=== PATIENT | male | born 1960 | race Caucasian/White ===

== ENCOUNTER 2016-08-14 10:21 | Observation (INO) | payer MEDICARE ==
[2016-08-14] MEDS ORDERED: ASPIRIN 81 MG TABLET, CHEWABLE PO ONE (10:28)
[2016-08-14] MEDS ORDERED: NITROGLYCERIN 2% OINTMENT 1 GM PACKET TP ONE (10:35)
[2016-08-14 10:43] LABS: ABSOLUTE BASOPHILS # (AUTO) 0.1 10^3/uL (0.0-0.2); ABSOLUTE EOSINOPHILS # (AUTO) 0.2 10^3/uL (0.0-0.6); ABSOLUTE LYMPHOCYTES (AUTO) 1.2 10^3/uL (0.5-4.7); ABSOLUTE MONOCYTES (AUTO) 1.3 10^3/uL (0.1-1.4); ABSOLUTE NEUT (AUTO) 10.8 10^3/uL (1.7-8.2); BASOPHILS % (AUTO) 0.7 % (0-2); EOSINOPHILS % (AUTO) 1.5 % (0-6); HEMATOCRIT 34.1 % (37.9-51.0); HEMOGLOBIN 11.2 g/dL (13.5-17.0); HGB HCT DIFFERENCE -0.5; LYMPHOCYTES % (AUTO) 8.7 % (13-45); MEAN CORPUSCULAR HEMOGLOBIN 30.2 pg (27.0-33.4); MEAN CORPUSCULAR HGB CONC 32.8 g/dL (32.0-36.0); MEAN CORPUSCULAR VOLUME 92 fl (80-97); MONOCYTES % (AUTO) 9.4 % (3-13); RED BLOOD COUNT 3.71 10^6/uL (4.35-5.55); RED CELL DISTRIBUTION WIDTH 13.7 % (11.5-14.0); SEGMENTED NEUTROPHILS % (AUTO) 79.7 % (42-78); WHITE BLOOD COUNT 13.6 10^3/uL (4.0-10.5)
[2016-08-14 10:57] LABS: ALANINE AMINOTRANSFERASE 32 U/L (21-72); ALBUMIN 3.4 g/dL (3.5-5.0); ALKALINE PHOSPHATASE 90 U/L (38-126); ANION GAP 13 (5-19); ASPARTATE AMINO TRANSFERASE 21 U/L (17-59); BILIRUBIN,DIRECT 0.5 mg/dL (0.0-0.4); BILIRUBIN,TOTAL 0.5 mg/dL (0.2-1.3); BLOOD UREA NITROGEN 63 mg/dL (7-20); CALCIUM 8.9 mg/dL (8.4-10.2); CARBON DIOXIDE 27 mmol/L (22-30); CHLORIDE 95 mmol/L (98-107); CREATINE KINASE 148 U/L (55-170); CREATININE RESULT 8.58 mg/dL (0.52-1.25); GLUCOSE 151 mg/dL (75-110); LIPASE 245.8 U/L (23-300); MAGNESIUM 2.4 mg/dL (1.6-2.3); POTASSIUM 5.4 mmol/L (3.6-5.0); TOTAL PROTEIN 6.5 g/dL (6.3-8.2)
[2016-08-14 11:01] LABS: PROTHROMBIN TIME 13.5 SEC (11.4-15.4)
[2016-08-14 11:02] LABS: PARTIAL THROMBOPLASTIN TIME 31.3 SEC (23.5-35.8)
--- NOTE | 2016-08-14 11:02 | RADIOLOGY REPORT (SQ) ---
EXAM DESCRIPTION: CHEST SINGLE VIEW COMPLETED DATE/TIME: 08/14/2016 10:51 am REASON FOR STUDY: cp COMPARISON: None. EXAM PARAMETERS: NUMBER OF VIEWS: One view. TECHNIQUE: Single frontal radiographic view of the chest acquired. RADIATION DOSE: NA LIMITATIONS: Poor inspiration. FINDINGS: LUNGS AND PLEURA: No opacities, masses or pneumothorax. No pleural effusion. MEDIASTINUM AND HILAR STRUCTURES: No masses. Contour normal. HEART AND VASCULAR STRUCTURES: Mild cardiomegaly. No evidence failure. BONES: No acute findings. HARDWARE: Status post midline sternotomy. OTHER: No other significant finding. IMPRESSION: Mild cardiomegaly without evidence of acute cardiopulmonary disease. TECHNICAL DOCUMENTATION: JOB ID: [id number]
[2016-08-14 11:09] LABS: CREATINE KINASE MB 6.35 ng/mL (<4.55)
[2016-08-14 11:14] LABS: TROPONIN I 0.064 ng/mL
--- NOTE | 2016-08-14 11:30 | RADIOLOGY REPORT (SQ) ---
EXAM DESCRIPTION: CT HEAD WITHOUT COMPLETED DATE/TIME: 08/14/2016 11:03 am REASON FOR STUDY: ams COMPARISON: None. TECHNIQUE: Axial images acquired through the brain without intravenous contrast. Images reviewed wi th bone, brain and subdural windows. Images stored on PACS. All CT scanners at this facility use dose modulation, iterative reconstruction, and/or weight based d osing when appropriate to reduce radiation dose to as low as reasonably achievable (ALARA). [facility]: Dose Right [facility]: CareDose [facility]: Dose Right [facility]: Teradose 4D [facility]: better. RADIATION DOSE: Up-to-date CT equipment and radiation dose reduction techniques were employed. CTDIv ol: 64.6 mGy. DLP: 1163 mGy-cm. mGy. LIMITATIONS: None. FINDINGS: VENTRICLES: Prominent. CEREBRUM: No masses. No hemorrhage. No midline shift. Areas of low density in the white matter mos t likely due to chronic micro-vascular ischemic change. No evidence for acute infarction. CEREBELLUM: No masses. No hemorrhage. No alteration of density. No evidence for acute infarction. EXTRAAXIAL SPACES: Mild age-related involutional change. No fluid collections. No masses. ORBITS AND GLOBE: No intra- or extraconal masses. Normal contour of globe without masses. CALVARIUM: No fracture. PARANASAL SINUSES: No fluid or mucosal thickening. SOFT TISSUES: No mass or hematoma. OTHER: No other significant finding. IMPRESSION: MILD CHRONIC CHANGES OF ATROPHY AND MICROVASCULAR ISCHEMIA. NO ACUTE PROCESS. TECHNICAL DOCUMENTATION: JOB ID: [id number] Quality ID # [id number]: Final reports with documentation of one or more dose reduction techniques (e.g., Au tomated exposure control, adjustment of the mA and/or kV according to patient size, use of iterative reconstruction technique) 2010 [employer]- All Rights Reserved
--- NOTE | 2016-08-14 11:51 | ER Document Report ---
ED General - General Chief Complaint: Chest Pressure Stated Complaint: CHEST PAIN Time Seen by Provider: 08/14/16 11:00 TRAVEL OUTSIDE OF THE [place] IN LAST 30 DAYS: No - HPI Patient complains to provider of: Chest pain Notes: Coming in for evaluation chest pain chest pressure. Patient states woke up morning with symptoms also states he was mildly confused. Patient is a end- stage renal disease patient performing home hemodialysis. Patient states he normally performs his hemodialysis Tuesdays. Patient denies any recent travel denies any recent trauma. Patient states he had a full session of dialysis today prior to arrival. Patient states he does have a history of stent placement bypass surgery. - Related Data Allergies/Adverse Reactions: lisinopril Allergy (Verified 08/14/16 10:39) Home Medications: Current Home Medications Atorvastatin Calcium [Lipitor 20 mg Tablet] 20 mg PO QHS 08/14/16 [History] Cilostazol [Cilostazol] 50 mg PO BID 08/14/16 [History] Metoprolol Tartrate [Metoprolol Tartrate] 50 mg PO Q12 08/14/16 [History] Past Medical History - Social History Smoking Status: Former Smoker Frequency of alcohol use: None Drug Abuse: None Family History: Reviewed & Not Pertinent - Past Medical History Cardiac Medical History: Reports: Hx Hypercholesterolemia, Hx Hypertension Endocrine Medical History: Reports: Hx Diabetes Mellitus Type 1 Past Surgical History: Reports: Hx Cardiac Catheterization, Hx Cardiac Surgery - bypass Review of Systems - Review of Systems Constitutional: No symptoms reported EENT: No symptoms reported Cardiovascular: Chest pain Respiratory: No symptoms reported Gastrointestinal: No symptoms reported Genitourinary: No symptoms reported Male Genitourinary: No symptoms reported Musculoskeletal: No symptoms reported Skin: No symptoms reported Hematologic/Lymphatic: No symptoms reported Neurological/Psychological: No symptoms reported -: Yes All other systems reviewed and negative Physical Exam - Vital signs Vitals: Resp 20 08/14/16 10:25 Interpretation: Normal - General General appearance: Appears well, Alert - HEENT Head: Normocephalic, Atraumatic Eyes: Normal Pupils: PERRL - Respiratory Respiratory status: No respiratory distress Chest status: Nontender Breath sounds: Normal Chest palpation: Normal - Cardiovascular Rhythm: Regular Heart sounds: Normal auscultation Murmur: No - Abdominal Inspection: Normal Distension: No distension Bowel sounds: Normal Tenderness: Nontender Organomegaly: No organomegaly - Back Back: Normal, Nontender - Extremities General upper extremity: Normal inspection, Nontender, Normal color, Normal ROM , Normal temperature, Other - AV fistula in the left upper extremity with palpable thrill General lower extremity: Normal inspection, Nontender, Normal color, Normal ROM , Normal temperature, Normal weight bearing. No: Kisha's sign - Neurological Neuro grossly intact: Yes Cognition: Normal Orientation: AAOx4 [place] Coma Scale Eye Opening: Spontaneous Rose Coma Scale Verbal: Oriented Rose Coma Scale Motor: Obeys Commands [place] Coma Scale Total: 15 Speech: Normal Motor strength normal: LUE, RUE, LLE, RLE Sensory: Normal - Psychological Associated symptoms: Normal affect, Normal mood - Skin Skin Temperature: Warm Skin Moisture: Dry Skin Color: Normal Course - Re-evaluation Re-evalutation: 08/14/16 14:53 Chest pain improved with nitroglycerin. Lab work shows increase in BUN and creatinine patient is unaware of his baseline at dialysis. Patient has a hard time getting most details of past medical history therefore it was paperwork and previous history from [facility]. Troponin EKG did not show any acute pathology this time. Patient will be admitted to the hospital service for further evaluation - Vital Signs Vital signs: Temp Pulse Resp BP Pulse Ox 98.0 F 19 128/60 H 97 08/14/16 10:36 08/14/16 13:51 08/14/16 13:51 08/14/16 13:51 - Laboratory Result Diagrams: 08/14/16 10:32 08/14/16 10:32 Laboratory results interpreted by me: 08/14/16 08/14/16 08/14/16 10:32 10:32 10:32 WBC 13.6 H RBC 3.71 L Hgb 11.2 L Hct 34.1 L Seg Neutrophils % 79.7 H Lymphocytes % 8.7 L Absolute Neutrophils 10.8 H Sodium 135.0 L Potassium 5.4 H Chloride 95 L BUN 63 H Creatinine 8.58 H Est GFR ( Amer) 8 L Est GFR (Non-Af Amer) 6 L Glucose 151 H Magnesium 2.4 H Direct Bilirubin 0.5 H CK-MB (CK-2) 6.35 H Albumin 3.4 L Discharge - Discharge Clinical Impression: Chest pressure, Transient confusion Admitting Provider: Hospitalist - [place] Unit Admitted: Telemetry
[2016-08-14] MEDS ORDERED: ONDANSETRON HCL INJ/PF 4 MG/2 ML SDV IV PRN (12:13)
--- NOTE | 2016-08-14 12:44 | EKG REPORT ---
SEVERITY:- NORMAL ECG - SINUS RHYTHM : Confirmed by: Eli Brown MD 14-Aug-2016 12:43:33
--- NOTE | 2016-08-14 14:25 | PDOC H&P ---
History of Present Illness Admission Date/PCP: 08/14/16 12:14 Patient complains of: Chest pressure and mild confusion History of Present Illness: EMILIANO JARRETT is a 56 year old male with past medical history of coronary artery disease, status post CABG in October 2015 [facility], diabetes mellitus type 2, essential hypertension, dyslipidemia, end-stage renal disease on hemodialysis at home, and obesity; presents to [facility] via EMS this morning with complaints of chest pressure and mild confusion. Patient states when he first woke up this morning he felt me and she will be up, "funny in the head", and was having chest pressure and tightness. He states he had mild nausea associated with his chest tightness had no vomiting. He states he has never had angina symptoms in the past prior to his coronary bypass surgery. He states his heart disease was found incidentally during a workup for a renal transplant at [facility] last year. Patient states he has been on hemodialysis for the last 2 years at home, his does his treatments. He states he had a full dialysis session yesterday, he often does 2 days in a row and then off a day dependent on his 's work schedule. Past Medical History Cardiac Medical History: Reports: Coronary Artery Disease, Hyperlipidema, Hypertension Pulmonary Medical History: Reports: None EENT Medical History: Reports: None Neurological Medical History: Reports: None Endocrine Medical History: Reports: Diabetes Mellitus Type 2 Renal/ Medical History: Reports: End Stage Renal Disease, Other - Home hemodialysis Malignancy Medical History: Reports: None GI Medical History: Reports: None Musculoskeltal Medical History: Reports: None Skin Medical History: Reports: None Psychiatric Medical History: Reports: None - 2-year-old who came in today because she keeps falling down Lance.4. Traumatic Medical History: Reports: None Hematology: Reports: None Past Surgical History Past Surgical History: Reports: Cardiac Catheterization, Coronary Artery Bypass Graft Social History Information Source: Patient Lives with: Spouse/Significant other Smoking Status: Former Smoker Number of Years Smokin Last Time Smoked: 5 years ago Frequency of Alcohol Use: Rare Hx Recreational Drug Use: No Drugs: None Hx Prescription Drug Abuse: No - Advance Directive Resuscitation Status: Full Code Surrogate healthcare decision maker:: , Miller Family History Family History: CAD, DM, Hyperlipidemia, Hypertension Parental Family History Reviewed: Yes Children Family History Reviewed: Yes Sibling(s) Family History Reviewed.: Yes Medication/Allergy Allergies/Adverse Reactions: lisinopril Allergy (Verified 08/14/16 10:39) Review of Systems Constitutional: ABSENT: chills, fever(s), headache(s), weight gain, weight loss Eyes: ABSENT: visual disturbances Ears: ABSENT: hearing changes Cardiovascular: PRESENT: chest pain Respiratory: ABSENT: cough, hemoptysis Gastrointestinal: ABSENT: abdominal pain, constipation, diarrhea, hematemesis, hematochezia, nausea, vomiting Genitourinary: ABSENT: dysuria, hematuria Musculoskeletal: ABSENT: joint swelling Integumentary: ABSENT: rash, wounds Neurological: ABSENT: abnormal gait, abnormal speech, confusion, dizziness, focal weakness, syncope Psychiatric: ABSENT: anxiety, depression, homidical ideation, suicidal ideation Endocrine: ABSENT: cold intolerance, heat intolerance, polydipsia, polyuria Hematologic/Lymphatic: ABSENT: easy bleeding, easy bruising Physical Exam Vital Signs: Temp Pulse Resp BP Pulse Ox 98.0 F 19 128/60 H 97 08/14/16 10:36 08/14/16 13:51 08/14/16 13:51 08/14/16 13:51 General appearance: PRESENT: no acute distress, obese, well-developed, well- nourished Head exam: PRESENT: atraumatic, normocephalic Eye exam: PRESENT: conjunctiva pink, EOMI, PERRLA. ABSENT: scleral icterus Ear exam: PRESENT: normal external ear exam Mouth exam: PRESENT: moist, tongue midline Neck exam: ABSENT: carotid bruit, JVD, lymphadenopathy, thyromegaly Respiratory exam: PRESENT: clear to auscultation shelli. ABSENT: rales, rhonchi, wheezes Cardiovascular exam: PRESENT: RRR. ABSENT: diastolic murmur, rubs, systolic murmur Pulses: PRESENT: normal dorsalis pedis pul Vascular exam: PRESENT: normal capillary refill GI/Abdominal exam: PRESENT: normal bowel sounds, soft. ABSENT: distended, guarding, mass, organolmegaly, rebound, tenderness Rectal exam: PRESENT: deferred Extremities exam: PRESENT: full ROM. ABSENT: calf tenderness, clubbing, pedal edema Neurological exam: PRESENT: alert, awake, oriented to person, oriented to place , oriented to time, oriented to situation, CN II-XII grossly intact. ABSENT: motor sensory deficit Psychiatric exam: PRESENT: appropriate affect, normal mood. ABSENT: homicidal ideation, suicidal ideation Skin exam: PRESENT: dry, intact, warm. ABSENT: cyanosis, rash Results Impressions: Chest X-Ray 08/14/16 10:29 IMPRESSION: Mild cardiomegaly without evidence of acute cardiopulmonary disease. Head CT 08/14/16 10:35 IMPRESSION: MILD CHRONIC CHANGES OF ATROPHY AND MICROVASCULAR ISCHEMIA. NO ACUTE PROCESS. Assessment & Plan - Diagnosis (1) Chest pressure Is this a current diagnosis for this admission?: YesPlan: Admit to telemetry on observation. Troponins q6h prn x 3. ECG with any recurrent chest pain (2) ESRD (end stage renal disease) on dialysis Is this a current diagnosis for this admission?: YesPlan: Patient on home hemodialysis. He had dialysis yesterday. His potassium is 5.4 today. He states his often does his hemodialysis 2 days in a row due to her work schedule, then [address] consult [address] Tao, nephrology (3) Transient confusion Is this a current diagnosis for this admission?: YesPlan: Resolved. CT of the head shows no acute findings other than microvascular disease (4) Essential hypertension Is this a current diagnosis for this admission?: YesPlan: Continue home antihypertensives once medication reconciliation is done (5) Hyperkalemia Is this a current diagnosis for this admission?: YesPlan: Patient on hemodialysis at home. Will consult Dr Tao may need dialysis in the am - Time Time Spent: 50 to 70 Minutes Critical Time spent with patient: 25-34 minutes Medications reviewed and adjusted accordingly: Yes
[2016-08-14] MEDS ORDERED: DEXTROSE 50%-WATER 25 GM/50 ML DISP.SYRIN IV PRN ×2 (17:11)
[2016-08-14] MEDS ORDERED: GLUCAGON,HUMAN RECOMB 1 MG INJ IM PRN (17:11)
[2016-08-14] MEDS ORDERED: DEXTROSE 40% GEL 15 GM TUBE PO PRN ×2 (17:11)
[2016-08-14] MEDS: LANSOPRAZOLE 30 MG TAB.RAP.DR PO SCH (17:31)
[2016-08-14] MEDS: CILOSTAZOL 100 MG TABLET PO SCH (17:31)
[2016-08-14] MEDS: INSULIN LISPRO 100 UNIT/ML 3 ML VIAL SUBCUT PRN (17:38)
--- NOTE | 2016-08-14 19:07 | PDOC CONSULTATION ---
Consultation Consult Date: 08/14/16 Attending physician:: YUSUF JUDD Consult reason:: I was asked by Annika Judd to see this patient to supervise dialysis in a patient with ESRD and hyperkalemia. History of Present Illness Admission Date/PCP: 08/14/16 12:14 History of Present Illness: EMILIANO JARRETT is a 56 year old male with past medical history of coronary artery disease, status post CABG in October 2015 [facility], diabetes mellitus type 2, essential hypertension, dyslipidemia, end-stage renal disease on hemodialysis at home, and obesity; presents to [facility] via EMS this morning with complaints of chest pressure and mild confusion. Patient states when he first woke up this morning he felt me and she will be up, "funny in the head", and was having chest pressure and tightness. He states he had mild nausea associated with his chest tightness had no vomiting. He claims that his blood sugar was 188 this morning, blood pressure was 135/65. He also felt a little bit dizzy. He claims that he has not felt this way before. He states he has never had angina symptoms in the past prior to his coronary bypass surgery. He states his heart disease was found incidentally during a workup for a renal transplant at [facility] last year. Patient states he has been on hemodialysis for the last 2 years at home, his does his treatments. He started on in-center hemodialysis in March 11, 2014 and then later on switched to home hemodialysis until now. He does 4 days of treatment using 60 L volume. His dry weight is 121-122 kg. He states he had a full dialysis session yesterday for 4 hours, he often does 2 days in a row and then off a day dependent on his 's work schedule. His works in the afternoon around 1:00 until the night so they usually do his dialysis treatment in the morning. He has a left upper arm AV fistula. He still makes a little bit of urine. He does not use heparin. The cause of his renal failure according to him with diabetic nephropathy. His primary rn psychiatric is [facility]. Past Medical History Cardiac Medical History: Reports: Coronary Artery Disease, Hyperlipidemia, Hypertension-primary Endocrine Medical History: Reports: Diabetes Mellitus Type 2 Complications of Diabetes: Reports: Nephropathy Renal/ Medical History: Reports: End Stage Renal Disease, Other - Home hemodialysis Hematology Medical History: Reports Anemia of Chronic Kidney Disease Past Surgical History Past Surgical History: Reports: Cardiac Catheterization, Coronary Artery Bypass Graft Social History Information Source: Patient Lives with: Spouse/Significant other Smoking Status: Former Smoker Pipes Per Day: 2 Number of Years Smokin Last Time Smoked: 5 years ago Frequency of Alcohol Use: None Hx Recreational Drug Use: No Drugs: None Hx Prescription Drug Abuse: No - Advance Directive Resuscitation Status: Full Code Family History Family History: CAD, DM, Hyperlipidemia, Hypertension Parental Family History Reviewed: Yes Children Family History Reviewed: Yes Sibling(s) Family History Reviewed.: Yes Medication/Allergy Home Medications: Atorvastatin Calcium [Lipitor 20 mg Tablet] 20 mg PO QHS 08/14/16 Cilostazol [Cilostazol] 50 mg PO BID 08/14/16 Insulin Aspart [Novolog Insulin 100 Unit/1 ml 10 ml] 0 unit SUBCUT .SLD SCALE Insulin Aspart [Novolog Insulin 100 Unit/1 ml 10 ml] 6 unit SUBCUT AC 08/14/16 Insulin Detemir [Levemir Flextouch] 30 unit SQ QPM 08/14/16 Metoprolol Tartrate [Metoprolol Tartrate] 50 mg PO Q12 08/14/16 Allergies/Adverse Reactions: lisinopril Allergy (Verified 08/14/16 10:39) Review of Systems All systems: reviewed and no additional remarkable complaints except as stated Review of Systems: Constitutional: ABSENT: chills, fever(s), headache(s), weight gain, weight loss ; admits fatigue Eyes: ABSENT: visual disturbances Ears: ABSENT: hearing changes Cardiovascular: ABSENT: Dyspnea on exertion, edema, orthropnea, palpitations; admits chest tightness early Respiratory: ABSENT: cough, dyspnea, hemoptysis Gastrointestinal: ABSENT: abdominal pain, constipation, diarrhea, hematemesis, hematochezia, vomiting; admits to nausea Genitourinary: ABSENT: dysuria, hematuria Musculoskeletal: ABSENT: joint swelling Integumentary: ABSENT: rash, wounds Neurological: ABSENT: abnormal gait, abnormal speech, focal weakness, numbness, syncope; admits confusion and dizziness earlier. Psychiatric: ABSENT: anxiety, depression Endocrine: ABSENT: cold intolerance, heat intolerance, polydipsia, polyuria Hematologic/Lymphatic: ABSENT: easy bleeding, easy bruising, lymphadenopathy Physical Exam Vital Signs: Temp Pulse Resp BP Pulse Ox 97.5 F 78 18 146/71 H 98 08/14/16 16:14 08/14/16 16:14 08/14/16 16:14 08/14/16 16:14 08/14/16 16:14 Intake & Output 08/13/16 08/14/16 08/15/16 06:59 06:59 06:59 Intake Total 3 Balance 3 Exam: General appearance: no acute distress, cooperative, well-developed, well- nourished Head exam: PRESENT: atraumatic, normocephalic Eye exam: PRESENT: Conjunctiva [place], EOMI, PERRLA. ABSENT: conjunctival injection, scleral icterus Mouth exam: PRESENT: moist, neck supple, tongue midline Neck exam: PRESENT: full ROM. ABSENT: carotid bruit, JVD, lymphadenopathy, thyromegaly Respiratory exam: PRESENT: clear and mildly diminished to auscultation bilaterally. ABSENT: rales, rhonchi, stridor, wheezes Cardiovascular exam: PRESENT: RRR, +S1, +S2. He has good bruit and thrill over his left upper arm AV fistula. ABSENT: systolic murmur Pulses: PRESENT: normal radial pulses, normal dorsalis pedis pulses GI/Abdominal exam: PRESENT: normal bowel sounds, soft. ABSENT: guarding, mass, tenderness Rectal exam: deferred Extremities exam: PRESENT: full ROM. ABSENT: calf tenderness, pedal edema Musculoskeletal: PRESENT: full ROM. ABSENT: deformity Neurological exam: PRESENT: alert, Awake, Oriented to person, Oriented to place , Oriented to time, reflexes normal, CN II-XII grossly intact. ABSENT: motor sensory deficit Psychiatric exam: PRESENT: appropriate affect, normal mood. ABSENT: homicidal ideation, suicidal ideation Skin exam: PRESENT: intact, dry, warm. ABSENT: rash Results Laboratory Results: 08/14/16 17:13 Troponin I 0.074 Laboratory 08/14/16 08/14/16 08/14/16 10:32 10:32 10:32 WBC 13.6 H RBC 3.71 L Hgb 11.2 L Hct 34.1 L MCV 92 MCH 30.2 MCHC 32.8 RDW 13.7 Plt Count 280 Seg Neutrophils % 79.7 H Lymphocytes % 8.7 L Monocytes % 9.4 Eosinophils % 1.5 Basophils % 0.7 Absolute Neutrophils 10.8 H Absolute Lymphocytes 1.2 Absolute Monocytes 1.3 Absolute Eosinophils 0.2 Absolute Basophils 0.1 PT 13.5 INR 0.96 APTT 31.3 Sodium 135.0 L Potassium 5.4 H Chloride 95 L Carbon Dioxide 27 Anion Gap 13 BUN 63 H Creatinine 8.58 H Est GFR ( Amer) 8 L Est GFR (Non-Af Amer) 6 L Glucose 151 H POC Glucose Calcium 8.9 Magnesium 2.4 H Total Bilirubin 0.5 Direct Bilirubin 0.5 H Indirect Bilirubin Not Reportable Neonat Total Bilirubin Not Reportable AST 21 ALT 32 Alkaline Phosphatase 90 Creatine Kinase 148 CK-MB (CK-2) Troponin I Total Protein 6.5 Albumin 3.4 L Lipase 245.8 08/14/16 08/14/16 08/14/16 10:32 17:13 17:27 WBC RBC Hgb Hct MCV MCH MCHC RDW Plt Count Seg Neutrophils % Lymphocytes % Monocytes % Eosinophils % Basophils % Absolute Neutrophils Absolute Lymphocytes Absolute Monocytes Absolute Eosinophils Absolute Basophils PT INR APTT Sodium Potassium Chloride Carbon Dioxide Anion Gap BUN Creatinine Est GFR ( Amer) Est GFR (Non-Af Amer) Glucose POC Glucose 255 H Calcium Magnesium Total Bilirubin Direct Bilirubin Indirect Bilirubin Neonat Total Bilirubin AST ALT Alkaline Phosphatase Creatine Kinase CK-MB (CK-2) 6.35 H Troponin I 0.064 0.074 Total Protein Albumin Lipase Impressions: Chest X-Ray 08/14/16 10:29 IMPRESSION: Mild cardiomegaly without evidence of acute cardiopulmonary disease. Head CT 08/14/16 10:35 IMPRESSION: MILD CHRONIC CHANGES OF ATROPHY AND MICROVASCULAR ISCHEMIA. NO ACUTE PROCESS. Assessment & Plan - Diagnosis (1) ESRD (end stage renal disease) on dialysis Is this a current diagnosis for this admission?: YesPlan: Patient has been on home hemodialysis for at least one year now. His last dialysis treatment was yesterday. We will plan to do hemodialysis while he in the hospital due to his mild hyperkalemia. Patient's will be working around 1:00 PM until nighttime tomorrow so if he is still here, it would be better for him to be dialyzed while here in the hospital than at home. (2) Hyperkalemia Is this a current diagnosis for this admission?: YesPlan: Mild. We will do dialysis tomorrow. (3) Anemia in chronic kidney disease (CKD) Qualifiers: Chronic kidney disease stage: on chronic dialysis Qualified Code(s) : N18.6 - End stage renal disease; D63.1 - Anemia in chronic kidney disease; Z99.2 - Dependence on renal dialysis Is this a current diagnosis for this admission?: Yes (4) Diabetes mellitus type 2 in obese Is this a current diagnosis for this admission?: Yes (5) Chest pressure Is this a current diagnosis for this admission?: Yes (6) Essential hypertension Is this a current diagnosis for this admission?: Yes (7) Transient confusion Is this a current diagnosis for this admission?: Yes - Notes Notes: Thank you for this consultation. - Time Time Spent: 50 to 70 Minutes
[2016-08-14] MEDS ORDERED: ATORVASTATIN CALCIUM 20 MG TABLET PO SCH (22:00)
[2016-08-14] MEDS: METOPROLOL TARTRATE 50 MG TABLET PO SCH (22:31)
[2016-08-15 00:11] LABS: APPEARANCE,URINE CLEAR; BILIRUBIN,URINE NEGATIVE (NEGATIVE); GLUCOSE, URINE 150 mg/dL (NEGATIVE); KETONES,URINE NEGATIVE (NEGATIVE); LEUKOCYTE ESTERASE,URINE NEGATIVE (NEGATIVE); NITRITE,URINE NEGATIVE (NEGATIVE); PROTEIN,URINE 100 mg/dL (NEGATIVE); URINE SPECIFIC GRAVITY 1.008; UROBILINOGEN,URINE NEGATIVE mg/dL (<2.0)
[2016-08-15 00:25] LABS: URINE BARBITURATES SCREEN NEGATIVE; URINE METHADONE SCREEN NEGATIVE; URINE OPIATES LOW NEGATIVE; URINE PHENCYCLIDINE SCREEN NEGATIVE
[2016-08-15 05:02] LABS: ANION GAP 15 (5-19); BLOOD UREA NITROGEN 75 mg/dL (7-20); CALCIUM 8.3 mg/dL (8.4-10.2); CARBON DIOXIDE 24 mmol/L (22-30); CHLORIDE 96 mmol/L (98-107); CHOLESTEROL 117.38 mg/dL (0-200); CREATININE RESULT 9.78 mg/dL (0.52-1.25); Direct HDL 29 mg/dL (>40); GLUCOSE 176 mg/dL (75-110); POTASSIUM 4.9 mmol/L (3.6-5.0); SODIUM 134.6 mmol/L (137-145); TRIGLYCERIDES 134 mg/dL (<150)
[2016-08-15 05:12] LABS: DIRECT LDL 58 mg/dL (<100)
[2016-08-15] MEDS: LANSOPRAZOLE 30 MG TAB.RAP.DR PO SCH (07:00)
[2016-08-15] MEDS: CALCIUM ACETATE 667 MG CAPSULE PO SCH ×2 (08:21→13:09)
[2016-08-15] MEDS: INSULIN LISPRO 100 UNIT/ML 3 ML VIAL SUBCUT PRN (08:21)
[2016-08-15 08:45] VITALS: BP 96/49
[2016-08-15] MEDS ORDERED: ASPIRIN 81 MG TABLET, ENT COATED PO SCH (10:00)
[2016-08-15] MEDS ORDERED: INSULIN DETEMIR 100 UNIT/ML 3 ML PEN SUBCUT SCH ×2 (10:00→18:00)
[2016-08-15] MEDS: CILOSTAZOL 100 MG TABLET PO SCH (10:40)
[2016-08-15] MEDS: METOPROLOL TARTRATE 50 MG TABLET PO SCH (10:40)
--- NOTE | 2016-08-15 11:47 | PDOC DISCHARGE SUMMARY ---
General - Admit/Disc Date/PCP Admission Date/Primary Care Provider: 08/14/16 12:14 Discharge Date: 08/15/16 - Discharge Diagnosis (1) Chest pressure Is this a current diagnosis for this admission?: YesSummary: Pain atypical for cardiac, most likely GI related (2) ESRD (end stage renal disease) on dialysis Is this a current diagnosis for this admission?: YesSummary: Continue home hemodialysis, follow up with nephrology as scheduled (3) Transient confusion Is this a current diagnosis for this admission?: YesSummary: Resolved. Patient likely has sleep apnea. Will refer back to primary care provider for sleep study (4) Essential hypertension Is this a current diagnosis for this admission?: YesSummary: Continue home medications. (5) Hyperkalemia Is this a current diagnosis for this admission?: YesSummary: Patient was dialyzed today prior to discharge home - Additional Information Resuscitation Status: Full Code Discharge Diet: Diabetic, Other (Comments) - Renal Discharge Activity: Activity As Tolerated, Balance Activity w/Rest Home Medications: Atorvastatin Calcium [Lipitor 20 mg Tablet] 20 mg PO QHS 08/14/16 Cilostazol 50 mg PO BID 08/14/16 Insulin Aspart [Novolog Insulin (Aspart) 100 unit/mL] 0 unit SUBCUT .SLD SCALE 08/14/16 Insulin Aspart [Novolog Insulin (Aspart) 100 unit/mL] 6 unit SUBCUT AC 08/14/16 Insulin Detemir [Levemir Flextouch] 30 unit SQ QPM 08/14/16 Metoprolol Tartrate 50 mg PO Q12 08/14/16 Aspirin [Ecotrin 81 mg EC Tablet] 81 mg PO DAILY tabec 08/15/16 History of Present Illness Patient complains of: Chest pressure and confusion History of Present Illness: EMILIANO JARRETT is a 56 year old male with past medical history of coronary artery disease, status post CABG in October 2015 [facility], diabetes mellitus type 2, essential hypertension, dyslipidemia, end-stage renal disease on hemodialysis at home, and obesity; presents to [facility] via EMS this morning with complaints of chest pressure and mild confusion. Patient states when he first woke up this morning he felt me and she will be up, "funny in the head", and was having chest pressure and tightness. He states he had mild nausea associated with his chest tightness had no vomiting. He states he has never had angina symptoms in the past prior to his coronary bypass surgery. He states his heart disease was found incidentally during a workup for a renal transplant at [facility] last year. Patient states he has been on hemodialysis for the last 2 years at home, his does his treatments. He states he had a full dialysis session yesterday, he often does 2 days in a row and then off a day dependent on his 's work schedule. Hospital Course Hospital Course: Patient was admitted to the telemetry unit on observation status. He had no further chest pressure overnight. He had no further episodes of confusion. Dr. Tao, nephrology, was consulted for patient's hemodialysis. Patient will be dialyzed this morning prior to his discharge home. We discussed possible etiology for confusion and chest pressure being sleep apnea. He states he definitely snores at home and is restless sleeper according to his . We will refer him back to his primary care for sleep study. He will follow-up with his bariatric coordinator and Noe Silvestre as well. He will continue his home dialysis schedule Physical Exam Vital Signs: Temp Pulse Resp BP Pulse Ox 98.0 F 76 16 96/49 L 97 08/15/16 07:11 08/15/16 07:11 08/15/16 07:11 08/15/16 07:11 08/15/16 07:11 Intake & Output 08/14/16 08/15/16 08/16/16 06:59 06:59 06:59 Intake Total 356 Output Total 360 Balance -4 Weight 123.1 kg General appearance: PRESENT: no acute distress, obese, well-developed, well- nourished Head exam: PRESENT: atraumatic, normocephalic Eye exam: PRESENT: conjunctiva pink, conjunctiva pale, EOMI, PERRLA. ABSENT: scleral icterus Ear exam: PRESENT: normal external ear exam Mouth exam: PRESENT: moist, tongue midline Neck exam: ABSENT: carotid bruit, JVD, lymphadenopathy, thyromegaly Respiratory exam: PRESENT: accessory muscle use Cardiovascular exam: PRESENT: RRR. ABSENT: diastolic murmur, rubs, systolic murmur Pulses: PRESENT: normal dorsalis pedis pul Vascular exam: PRESENT: normal capillary refill GI/Abdominal exam: PRESENT: normal bowel sounds, soft. ABSENT: distended, guarding, mass, organolmegaly, rebound, tenderness Rectal exam: PRESENT: deferred Extremities exam: PRESENT: full ROM. ABSENT: calf tenderness, clubbing, pedal edema Musculoskeletal exam: PRESENT: ambulatory, full ROM, normal inspection Neurological exam: PRESENT: alert, awake, oriented to person, oriented to place , oriented to time, oriented to situation, CN II-XII grossly intact. ABSENT: motor sensory deficit Psychiatric exam: PRESENT: appropriate affect, normal mood. ABSENT: homicidal ideation, suicidal ideation Skin exam: PRESENT: dry, intact, warm. ABSENT: cyanosis, rash Results Laboratory Results: 08/15/16 04:03 08/14/16 08/15/16 23:55 04:03 Sodium 134.6 L Potassium 4.9 Chloride 96 L Carbon Dioxide 24 Anion Gap 15 BUN 75 H Creatinine 9.78 H Est GFR ( Amer) 7 L Est GFR (Non-Af Amer) 6 L Glucose 176 H Calcium 8.3 L Triglycerides 134 Cholesterol 117.38 LDL Cholesterol Direct 58 VLDL Cholesterol 27.0 HDL Cholesterol 29 L Urine Color YELLOW Urine Appearance CLEAR Urine pH 7.0 Ur Specific [employer] 1.008 Urine Protein 100 H Urine Glucose (UA) 150 H Urine Ketones NEGATIVE Urine Blood SMALL H Urine Nitrite NEGATIVE Ur Leukocyte Esterase NEGATIVE Urine WBC (Auto) 0 08/14/16 08/14/16 08/15/16 17:13 22:10 04:03 Troponin I 0.074 0.089 0.104 08/15/16 09:59 Troponin I 0.100 Impressions: Chest X-Ray 08/14/16 10:29 IMPRESSION: Mild cardiomegaly without evidence of acute cardiopulmonary disease. Head CT 08/14/16 10:35 IMPRESSION: MILD CHRONIC CHANGES OF ATROPHY AND MICROVASCULAR ISCHEMIA. NO ACUTE PROCESS. Qualifiers PATEINT BEING DISCHARGED WITH ANY OF THE FOLLOWING DIAGNOSIS?: No Plan Discharge Plan: Home with family Time Spent: Less than 30 Minutes
--- NOTE | 2016-08-15 15:30 | PDOC PROGRESS REPORT ---
Subjective Progress Note for:: 08/15/16 Subjective:: I saw the patient on dialysis this morning at around 8:45 AM. Patient said that he is feeling better. He denies any more chest pain nor shortness of breath or confusion. He was tolerating dialysis and tolerated all treatment without any problems. Physical Exam Vital Signs: Temp Pulse Resp BP Pulse Ox 98.0 F 76 16 96/49 L 97 08/15/16 12:43 08/15/16 12:43 08/15/16 12:43 08/15/16 12:43 08/15/16 12:43 Intake & Output 08/14/16 08/15/16 08/16/16 06:59 06:59 06:59 Intake Total 356 Output Total 360 1800 Balance -4 -1800 Weight 123.1 kg Vital signs during dialysis when I saw him this morning: Pressure 146/71, heart rate of 73, blood flow rate of 400 mL/min dialysate flow rate of 600 mL/min. Exam: General appearance: PRESENT: no acute distress, cooperative, well-developed, well-nourished Head exam: PRESENT: atraumatic, normocephalic Eye exam: PRESENT: conjunctiva pink, PERRLA. ABSENT: scleral icterus Neck exam: ABSENT: JVD Respiratory exam: PRESENT: Normal breath sounds. ABSENT: crackles, rales, rhonchi, unlabored, wheezes Cardiovascular exam: PRESENT: Regular rate rhythm -+S1, +S2. ABSENT: diastolic murmur, systolic murmur GI/Abdominal exam: PRESENT: normal bowel sounds, soft. ABSENT: guarding, mass, tenderness Extremities exam: ABSENT: No edema Neurological exam: PRESENT: alert, awake, oriented to person, place and time. Skin exam: PRESENT: dry, warm, Results Laboratory Results: 08/15/16 04:03 08/14/16 08/15/16 23:55 04:03 Sodium 134.6 L Potassium 4.9 Chloride 96 L Carbon Dioxide 24 Anion Gap 15 BUN 75 H Creatinine 9.78 H Est GFR ( Amer) 7 L Est GFR (Non-Af Amer) 6 L Glucose 176 H Calcium 8.3 L Triglycerides 134 Cholesterol 117.38 LDL Cholesterol Direct 58 VLDL Cholesterol 27.0 HDL Cholesterol 29 L Urine Color YELLOW Urine Appearance CLEAR Urine pH 7.0 Ur Specific [place] 1.008 Urine Protein 100 H Urine Glucose (UA) 150 H Urine Ketones NEGATIVE Urine Blood SMALL H Urine Nitrite NEGATIVE Ur Leukocyte Esterase NEGATIVE Urine WBC (Auto) 0 08/14/16 08/14/16 08/15/16 17:13 22:10 04:03 Troponin I 0.074 0.089 0.104 08/15/16 09:59 Troponin I 0.100 Impressions: Chest X-Ray 08/14/16 10:29 IMPRESSION: Mild cardiomegaly without evidence of acute cardiopulmonary disease. Head CT 08/14/16 10:35 IMPRESSION: MILD CHRONIC CHANGES OF ATROPHY AND MICROVASCULAR ISCHEMIA. NO ACUTE PROCESS. Assessment & Plan - Diagnosis (1) ESRD (end stage renal disease) on dialysis Is this a current diagnosis for this admission?: YesPlan: We did dialysis today for 3 hours, using the patient's left upper arm AV fistula , with 2 potassium bath, blood flow rate of 400 mL per minute, dialysate flow rate of 600 mL per minute, ultrafiltration up to the dry weight of 121-122 kg, no heparin and no Procrit during dialysis. Patient tolerated dialysis well. From nephrology standpoint patient can be discharged home if stable. (2) Hyperkalemia Is this a current diagnosis for this admission?: YesPlan: Dialysis done today. (3) Anemia in chronic kidney disease (CKD) Qualifiers: Chronic kidney disease stage: on chronic dialysis Qualified Code(s) : N18.6 - End stage renal disease; D63.1 - Anemia in chronic kidney disease; Z99.2 - Dependence on renal dialysis Is this a current diagnosis for this admission?: Yes (4) Diabetes mellitus type 2 in obese Is this a current diagnosis for this admission?: Yes (5) Chest pressure Is this a current diagnosis for this admission?: YesPlan: Resolved. (6) Essential hypertension Is this a current diagnosis for this admission?: Yes (7) Transient confusion Is this a current diagnosis for this admission?: YesPlan: Resolved. - Time Time with patient: 15-25 minutes
== END 2016-08-15 13:19 | disposition home or self-care (01) ==
LOC: ER 10:21 → UNDOADMOB 11:57 → INTOOBSV 11:57 → EH 11:57 → 4N 15:42
PROVIDERS: ADMIT Internal Medicine; ATTEND Internal Medicine
PROC: 5A1D00Z (ICD-10-PCS; principal; 2016-08-15)
DX: R07.89 Other chest pain (principal); E11.22 Type 2 diabetes mellitus with diabetic chronic kidney disease; I12.0 Hypertensive chronic kidney disease with stage 5 chronic kidney disease or end stage renal disease; N18.6 End stage renal disease; E87.5 Hyperkalemia; R41.0 Disorientation, unspecified; E11.21 Type 2 diabetes mellitus with diabetic nephropathy; D63.1 Anemia in chronic kidney disease; E78.5 Hyperlipidemia, unspecified; I25.10 Atherosclerotic heart disease of native coronary artery without angina pectoris; R11.0 Nausea; R06.83 Snoring; E66.9 Obesity, unspecified; Z99.2 Dependence on renal dialysis; Z79.899 Other long term (current) drug therapy; Z79.82 Long term (current) use of aspirin; Z79.4 Long term (current) use of insulin; Z95.1 Presence of aortocoronary bypass graft; Z87.891 Personal history of nicotine dependence; Z82.49 Family history of ischemic heart disease and other diseases of the circulatory system; Z83.3 Family history of diabetes mellitus; Z68.34 Body mass index [BMI] 34.0-34.9, adult
CPT/HCPCS: 93005; 99285; 36415 ×2; 82553; 82962 ×2; 82550; 83690; 83735; 85025; 85610; 85730; 80048; 80053; 81001; 84484 ×2; 80307; 80061; 71010; 70450; 93010; A9270 ×7; J3490 ×2; G0257; J1815

== ENCOUNTER 2020-02-27 09:16 | Emergency (ER) | payer MEDICARE, MEDICAID ==
--- NOTE | 2020-02-27 11:37 | ER Document Report ---
ED Medical Screen (RME) - General Chief Complaint: Fall Stated Complaint: LEG PAIN Time Seen by Provider: 02/27/20 11:20 Primary Care Provider: REBEKAH PEDRAZA DPM [Primary Care Provider] - Follow up as needed Mode of Arrival: Wheelchair Information source: Patient Notes: 60-year-old male patient presented to the emergency department with chief complaint of bilateral knee pain, left ankle and left foot pain. Patient reports he has fallen a few times over the last few days. Last night he states both of his knees gave out on him. He declines the need for any pain medications, states he took ibuprofen prior to coming to the emergency department. Unable to do a full evaluation in triage as patient has pants on. I have greeted and performed a rapid initial assessment of this patient. A comprehensive ED assessment and evaluation of the patient, analysis of test results and completion of the medical decision making process will be conducted by additional ED providers. I have specifically instructed the patient or family members with the patient to immediately return to any nursing staff should anything change in the patient's condition or with their chief complaint. TRAVEL OUTSIDE OF THE [place] IN LAST 30 DAYS: No - Related Data Allergies/Adverse Reactions: lisinopril Allergy (Verified 08/14/16 10:39) Past Medical History - Past Medical History Cardiac Medical History: Reports: Hx Coronary Artery Disease, Hx H ypercholesterolemia, Hx Hypertension Endocrine Medical History: Reports: Hx Diabetes Mellitus Type 1, Hx Diabetes Mellitus Type 2 Renal/ Medical History: Reports: Hx End Stage Renal Disease Past Surgical History: Reports: Hx Cardiac Catheterization, Hx Cardiac Surgery - bypass, Hx Coronary Artery Bypass Graft Physical Exam - Vital signs Vitals: Temp Pulse Resp BP Pulse Ox 98.2 F 89 22 H 169/49 H 95 02/27/20 09:23 02/27/20 09:23 02/27/20 09:23 02/27/20 09:23 02/27/20 09:23 Course - Vital Signs Vital signs: Temp Pulse Resp BP Pulse Ox 98.2 F 89 22 H 169/49 H 95 02/27/20 09:23 02/27/20 09:23 02/27/20 09:23 02/27/20 09:23 02/27/20 09:23 Doctor's Discharge - Discharge Referrals: KEILA,REBEKAH, DPM [Primary Care Provider] - Follow up as needed
--- NOTE | 2020-02-27 12:43 | RADIOLOGY REPORT (SQ) ---
EXAM DESCRIPTION: ANKLE LEFT COMPLETE; FOOT LEFT COMPLETE IMAGES COMPLETED DATE/TIME: 02/27/2020 12:08 pm REASON FOR STUDY: fall COMPARISON: None. NUMBER OF VIEWS: Six views. TECHNIQUE: AP, lateral and oblique radiographic images acquired of the left ankle and left foot. LIMITATIONS: None. FINDINGS: MINERALIZATION: Normal. BONES: No acute fracture or dislocation. No worrisome bone lesions. JOINTS: Intact. SOFT TISSUES: Vascular calcifications. OTHER: No other significant finding. IMPRESSION: No fracture. TECHNICAL DOCUMENTATION: JOB ID: [id number] 2010 [employer]- All Rights Reserved Reading location - IP/workstation name: [email or web address]
--- NOTE | 2020-02-27 12:43 | RADIOLOGY REPORT (SQ) ---
EXAM DESCRIPTION: ANKLE LEFT COMPLETE; FOOT LEFT COMPLETE IMAGES COMPLETED DATE/TIME: 02/27/2020 12:08 pm REASON FOR STUDY: fall COMPARISON: None. NUMBER OF VIEWS: Six views. TECHNIQUE: AP, lateral and oblique radiographic images acquired of the left ankle and left foot. LIMITATIONS: None. FINDINGS: MINERALIZATION: Normal. BONES: No acute fracture or dislocation. No worrisome bone lesions. JOINTS: Intact. SOFT TISSUES: Vascular calcifications. OTHER: No other significant finding. IMPRESSION: No fracture. TECHNICAL DOCUMENTATION: JOB ID: [id number] 2010 [employer]- All Rights Reserved Reading location - IP/workstation name: [email or web address]
--- NOTE | 2020-02-27 12:45 | RADIOLOGY REPORT (SQ) ---
EXAM DESCRIPTION: KNEE RIGHT 4 VIEWS; KNEE LEFT 4 VIEW IMAGES COMPLETED DATE/TIME: 02/27/2020 12:08 pm REASON FOR STUDY: fall COMPARISON: None. NUMBER OF VIEWS: 8 views TECHNIQUE: AP, lateral, and both oblique radiographic images acquired of the right and left knee. LIMITATIONS: None. FINDINGS: MINERALIZATION: Normal. BONES: No acute fracture or dislocation. No worrisome bone lesions. JOINT: Small effusion on the right. SOFT TISSUES: Vascular calcifications. OTHER: No other significant finding. IMPRESSION: Small right effusion. No fracture identified. TECHNICAL DOCUMENTATION: JOB ID: [id number] [employer]- All Rights Reserved Reading location - IP/workstation name: [email or web address]
--- NOTE | 2020-02-27 12:45 | RADIOLOGY REPORT (SQ) ---
EXAM DESCRIPTION: KNEE RIGHT 4 VIEWS; KNEE LEFT 4 VIEW IMAGES COMPLETED DATE/TIME: 02/27/2020 12:08 pm REASON FOR STUDY: fall COMPARISON: None. NUMBER OF VIEWS: 8 views TECHNIQUE: AP, lateral, and both oblique radiographic images acquired of the right and left knee. LIMITATIONS: None. FINDINGS: MINERALIZATION: Normal. BONES: No acute fracture or dislocation. No worrisome bone lesions. JOINT: Small effusion on the right. SOFT TISSUES: Vascular calcifications. OTHER: No other significant finding. IMPRESSION: Small right effusion. No fracture identified. TECHNICAL DOCUMENTATION: JOB ID: [id number] [employer]- All Rights Reserved Reading location - IP/workstation name: [email or web address]
--- NOTE | 2020-02-27 15:09 | ER Document Report ---
ED Fall - General Chief Complaint: Fall Stated Complaint: LEG PAIN Time Seen by Provider: 02/27/20 11:20 Primary Care Provider: REBEKAH LAKE DPM [Primary Care Provider] - Follow up as needed Mode of Arrival: Wheelchair Information source: Patient Notes: 02/27/20 11:20 - Nursing Note by JOSE CROFT Num: [id number] : 1960 Patient Age: 60 Pt arrives to triage via wheelchair. PT states that last night while ambulating his ble got weak and "gave out". pt states this morning he woke up to ble pain and weakness. PT denies hitting his head or any loss of consciousness. pt denies any other distress. pt is a&ox4 with e/u respirations. Initialized on 02/27/20 11:20 - END OF NOTE ED Medical Screen (Catherine Bautista) - General Chief Complaint: Fall Stated Complaint: LEG PAIN Time Seen by Provider: 02/27/20 11:20 Primary Care Provider: REBEKAH LAKE DPM [Primary Care Provider] - Follow up as needed Mode of Arrival: Wheelchair Information source: Patient Notes: 60-year-old male patient presented to the emergency department with chief complaint of bilateral knee pain, left ankle and left foot pain. Patient reports he has fallen a few times over the last few days. Last night he states both of his knees gave out on him. He declines the need for any pain medications, states he took ibuprofen prior to coming to the emergency d epartment. Unable to do a full evaluation in triage as patient has pants on. MY NOTES 60-year-old male arrives with chief complaint of falling late last night out of his bed onto the floor flat on his behind and back. Patient reports his legs gave way and he hurt both knees and legs and now both legs and feet are swollen. X-rays are negative for fractures except for right knee effusion. Patient arrives with his son who is the main caregiver and a trailer truck driver. 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 Patient reports she also sees Dr. Lake for a left foot ulcer. Patient is a diabetic and has just been evaluated by wound care for this and fell on 24 February out of the parking lot onto some cement curb injuring his left knee with some abrasions. He has a Band-Aid over these abrasions over the left anterior knee. Patient has very little drainage from there. He does have edema of his left knee as well as +2 edema to left leg and left foot. His right leg has +1 pitting edema and tenderness over the right knee but no tenderness over the right ankle right foot. Patient reports he is scheduled to get a left femoral catheterization with stenting soon. He has positive pulses to both extremities but has very little sensation to his feet because of diabetic neuropathy. He performs his own 15-gauge left antecubital AV shunt dialysis at home. TRAVEL OUTSIDE OF THE [place] IN LAST 30 DAYS: No - Related data Allergies/Adverse Reactions: lisinopril Allergy (Verified 08/14/16 10:39) Past Medical History - General Information source: Patient - Social History Smoking Status: Unknown if Ever Smoked Cigarette use (# per day): No Chew tobacco use (# tins/day): No Smoking Education Provided: No Frequency of alcohol use: None Drug Abuse: None Lives with: Family Family History: Reviewed & Not Pertinent Patient has suicidal ideation: No Patient has homicidal ideation: No - Past Medical History Cardiac Medical History: Reports: Hx Coronary Artery Disease, Hx Hyperc holesterolemia, Hx Hypertension Endocrine Medical History: Reports: Hx Diabetes Mellitus Type 1, Hx Diabetes Mellitus Type 2 Renal/ Medical History: Reports: Hx End Stage Renal Disease Past Surgical History: Reports: Hx Cardiac Catheterization, Hx Cardiac Surgery - bypass, Hx Coronary Artery Bypass Graft Review of Systems - Review of Systems Constitutional: See HPI, Weakness EENT: No symptoms reported Cardiovascular: No symptoms reported Respiratory: No symptoms reported Gastrointestinal: No symptoms reported Genitourinary: No symptoms reported Male Genitourinary: No symptoms reported Musculoskeletal: See HPI, Joint pain, Joint swelling, Muscle stiffness, Leg swelling, Ankle swelling, Other - Left arm with AV shunt Skin: See HPI, Other - Left foot plantar around pad of metatarsals heads with clean dressing right toe with status post toenail trimming per Dr. Lake Hematologic/Lymphatic: No symptoms reported Neurological/Psychological: See HPI, Weakness -: Yes All other systems reviewed and negative Physical Exam - Vital signs Vitals: Temp Pulse Resp BP Pulse Ox 98.2 F 89 22 H 169/49 H 95 02/27/20 09:23 02/27/20 09:23 02/27/20 09:23 02/27/20 09:23 02/27/20 09:23 Interpretation: Normal - General General appearance: Appears well, Alert - HEENT Head: Normocephalic, Atraumatic Eyes: Normal Pupils: PERRL - Respiratory Respiratory status: No respiratory distress Chest status: Nontender Breath sounds: Normal Chest palpation: Normal - Cardiovascular Rhythm: Regular Heart sounds: Normal auscultation Murmur: No - Abdominal Inspection: Normal Distension: No distension Bowel sounds: Normal Tenderness: Nontender Organomegaly: No organomegaly - Rectal Prostate: Other - Deferred - Genitourinary Scrotum: Other - Deferred - Back Back: Normal, Nontender - Extremities General upper extremity: Nontender, Normal color, Normal ROM, Normal temperature, Other - Left antecubital with a AV shunt General lower extremity: Tender - Abrasions to left anterior knee with tender and edematous bilateral knees and legs and left foot +2 pitting to left, Normal color, Normal ROM, Normal temperature, Normal weight bearing. No: Kisha's sign - Neurological Neuro grossly intact: Yes Cognition: Normal Orientation: AAOx4 Rose Coma Scale Eye Opening: Spontaneous [place] Coma Scale Verbal: Oriented Rose Coma Scale Motor: Obeys Commands [place] Coma Scale Total: 15 Speech: Normal Motor strength normal: LUE, RUE, LLE, RLE Sensory: Normal - Psychological Associated symptoms: Normal affect, Normal mood - Skin Skin Temperature: Warm Skin Moisture: Dry Skin Color: Normal Course - Vital Signs Vital signs: Temp Pulse Resp BP Pulse Ox 98.2 F 89 22 H 169/49 H 95 02/27/20 09:23 02/27/20 09:23 02/27/20 09:23 02/27/20 09:23 02/27/20 09:23 - Laboratory Results Critical Laboratory Results Reviewed: No Critical Results Attending or Supervising Physician who Reviewed Labs: KENYATTA SALGUERO JR - Radiology Results Critical Radiology Results Reviewed: No Critical Results Attending or Supervising Physician who Reviewed Radiology: KENYATTA SALGUERO JR Critical Care Note - Critical Care Note Comments: I spoke with Dr. Alverto Slater at 1603 and he advises he will see this patient outpatient in clinic Discharge - Discharge Clinical Impression: bilateral knee and leg contussions, Effusion, right knee Fall Qualifiers: Encounter type: initial encounter Qualified Code(s): W19.XXXA - Unspecified f all, initial encounter Condition: Stable Disposition: HOME, SELF-CARE Additional Instructions: Follow-up with Dr. Alverto Slater orthopedics about your knees. Return to ER as needed take medicines as directed encourage fluids.use w wheelchairlchair as neededhee Prescriptions: Levofloxacin [Levaquin 250 mg Tablet] 250 mg PO DAILY #10 tablet Etodolac [Lodine] 400 mg PO DAILY #5 tablet Referrals: REBEKAH LAKE DPM [Primary Care Provider] - Follow up as needed KIMBERLY SLATER JR, DO [ACTIVE PROVISIONAL STAFF] - Follow up as needed
[2020-02-27] MEDS ORDERED: HYDROCODONE/ACETAMINOPHEN 5-325 MG TABLET PO ONE (15:40)
[2020-02-27] MEDS ORDERED: HYDROCODONE/ACETAMINOPHEN 5-325 MG (6 TAB/ER DISP) PO PRN (15:40)
[2020-02-27] MEDS ORDERED: LEVOFLOXACIN 500 MG TABLET PO ONE (15:40)
[2020-02-27 16:37] VITALS: BP 177/62
== END 2020-02-27 16:24 | disposition home or self-care (01) ==
LOC: ER 09:16
DX: S80.02XA Contusion of left knee, initial encounter (principal); S80.01XA Contusion of right knee, initial encounter; M25.572 Pain in left ankle and joints of left foot; M79.672 Pain in left foot; W06.XXXA Fall from bed, initial encounter; S80.212A Abrasion, left knee, initial encounter; W19.XXXA Unspecified fall, initial encounter; M25.461 Effusion, right knee; R53.1 Weakness; R60.0 Localized edema; E11.621 Type 2 diabetes mellitus with foot ulcer; L97.529 Non-pressure chronic ulcer of other part of left foot with unspecified severity; I25.10 Atherosclerotic heart disease of native coronary artery without angina pectoris; I10 Essential (primary) hypertension
CPT/HCPCS: 99284; 73610; 73630; 73564 ×2; A9270 ×3